=== PATIENT | female | born 1940 | race Caucasian/White ===

== ENCOUNTER → 2021-02-08 | Outpatient (CLI) | payer MEDICARE ==
[~2021-02-08] MED LIST: ATOR20TA37 PO; CALC500T14 PO; CHOL10003 PO; GABA-826 PO; LISI40TA9 PO; MAGN400T36 PO; METF500T17 PO; VITA15LO2 PO
[2021-02-08 12:12] LABS: BASOPHILS % (AUTO) 0 % (0-1); EOSINOPHILS % (AUTO) 3 % (1-7); LYMPHOCYTES % (AUTO) 28 % (22-44); MEAN CORPUSCULAR HEMOGLOBIN 30.1 pg (27.0-34.8); MEAN CORPUSCULAR HGB CONC 33.6 g/dL (32.4-35.8); MEAN PLATELET VOLUME 8.7 fL (7.4-10.4); MONOCYTES % (AUTO) 7 % (2-9); NEUTROPHILS % (AUTO) 62 % (42-75); PLATELET COUNT 249 x10^3/uL (130-400); RED BLOOD COUNT 4.38 x10^6/uL (3.82-5.3); RED CELL DISTRIBUTION WIDTH 13.3 % (9.6-15.2)
[2021-02-08 12:21] LABS: ALANINE AMINOTRANSFERASE 22 U/L (12-78); ALBUMIN 3.6 g/dL (3.4-5.0); ANION GAP 5 mmol/L (5-15); CALCIUM 9.4 mg/dL (8.5-10.1); CHLORIDE 109 mmol/L (98-107); CREATININE 0.64 mg/dL (0.55-1.02)
[2021-02-08 12:23] LABS: ALKALINE PHOSPHATASE 93 U/L (45-117); BILIRUBIN,TOTAL 0.8 mg/dL (0.2-1.0); TOTAL PROTEIN 7.5 g/dL (6.4-8.2)
== END | disposition home or self-care (01) ==
LOC: STAR 10:43
PROVIDERS: ATTEND Orthopaedic Surgery
DX: Z01.818 Encounter for other preprocedural examination (principal); M16.12 Unilateral primary osteoarthritis, left hip; Z20.822 Contact with and (suspected) exposure to COVID-19
CPT/HCPCS: 36415; 80053; 85025; 87081; 93005; U0003; U0005

== ENCOUNTER 2021-02-14 09:47 | Observation (INO) | payer MEDICARE ==
[~2021-02-14] VITALS: Ht 167.6 cm; Wt 95.8 kg
[~2021-02-14 09:47] MED LIST changes: +EPINEPHRINE 1 MG/ML, 1ML ONE; +KETOROLAC 60 MG/2 ML ONE; +ROPIvacaine/PF 0.2%, 20 ML ONE; +ROPivacaine/PF 0.2%, 10 ML ONE; +SODIUM CHLORIDE 0.9% 50 ML ONE; +TRANEXAMIC ACID 100 MG/ML, 10ML ONE
[2021-02-14] MEDS ORDERED: ONDANSETRON 4 MG TABLET PO PRN (10:30)
[2021-02-14] MEDS ORDERED: DEXAMETHASONE 4 MG/ML, 1ML IVPush ONE (10:30)
[2021-02-14] MEDS ORDERED: OXYcodone IR 5MG TABLET PO PRN (10:30)
[2021-02-14] MEDS ORDERED: METOCLOPRAMIDE 5 MG/ML, 2ML IVPush PRN (10:30)
[2021-02-14] MEDS ORDERED: DIPHENHYDRAMINE 50 MG/ML, 1ML IVPush PRN (10:30)
[2021-02-14] MEDS ORDERED: DIPHENHYDRAMINE 50 MG CAPSULE PO PRN (10:30)
[2021-02-14] MEDS ORDERED: POLYETHYLENE GLYCOL 17 GM PACKET PO PRN (10:30)
[2021-02-14] MEDS ORDERED: PSYLLIUM PACKET PO PRN (10:30)
[2021-02-14] MEDS ORDERED: ALUMINUM/MAG/SIMETHICONE 30 ML UDC PO PRN (10:30)
[2021-02-14] MEDS ORDERED: SENNA/DOCUSATE TABLET PO PRN (10:30)
[2021-02-14] MEDS ORDERED: HYDROmorphone 1 MG/ML, 1ML INJ IVPush PRN ×2 (10:30→15:00)
[2021-02-14] MEDS ORDERED: MAGNESIUM HYDROXIDE 8%, 30ML UDC PO PRN (10:30)
[2021-02-14] MEDS ORDERED: ONDANSETRON 2MG/ML, 2ML IVPush PRN (10:30)
[2021-02-14] MEDS ORDERED: PROMETHAZINE 12.5 MG SUPP PR PRN (10:30)
[2021-02-14] MEDS ORDERED: TRANEXAMIC ACID 1,000 MG in SODIUM CHLORIDE 0.9% 100 ML IVPB ONE (10:30)
[2021-02-14] MEDS ORDERED: CHLORHEXIDINE 15 ML UDC ONE (11:19)
[2021-02-14] MEDS ORDERED: LIDOCAINE-MPF 1%, 2ML ONE (11:19)
[2021-02-14] MEDS ORDERED: LACTATED RINGERS 1,000 ML IV SCH (11:30)
[2021-02-14] MEDS ORDERED: CHLORHEXIDINE 15 ML UDC PO ONE ×2 (11:30→12:00)
[2021-02-14] MEDS ORDERED: LIDOCAINE-MPF 1%, 2ML INFIL ONE (11:30)
[2021-02-14 11:52] VITALS: BP 144/84
[2021-02-14] MEDS ORDERED: ACETAMINOPHEN 500 MG TABLET PO ONE (12:00)
[2021-02-14] MEDS ORDERED: GABAPENTIN 300 MG CAPSULE PO ONE (12:00)
[2021-02-14] MEDS ORDERED: GABAPENTIN 300 MG CAPSULE ONE (12:08)
[2021-02-14] MEDS ORDERED: ACETAMINOPHEN 500 MG TABLET ONE (12:08)
[2021-02-14] MEDS ORDERED: ROCURONIUM 10MG/ML,5ML ONE (13:47)
[2021-02-14] MEDS ORDERED: DEXAMETHASONE 4 MG/ML, 1ML ONE (13:47)
[2021-02-14] MEDS ORDERED: PROPOFOL 10 MG/ML, 20ML ONE (13:47)
[2021-02-14] MEDS ORDERED: FENTANYL PF 250 MCG/5ML ONE (13:47)
[2021-02-14] MEDS ORDERED: GLYCOPYRROLATE 0.2MG/1ML, 5ML ONE (13:47)
[2021-02-14] MEDS ORDERED: NEOSTIGMINE 1 MG/ML, 10ML ONE (13:47)
[2021-02-14] MEDS ORDERED: CEFAZOLIN 1,000 MG ONE (13:47)
[2021-02-14] MEDS ORDERED: ONDANSETRON 2MG/ML, 2ML ONE ×2 (13:47→17:37)
[2021-02-14] MEDS ORDERED: MEPERIDINE/PF 25MG/0.5ML IVPush PRN (15:00)
[2021-02-14] MEDS ORDERED: PROMETHAZINE 25 MG/ML, 1ML IVPush PRN (15:00)
[2021-02-14] MEDS ORDERED: hydrALAzine 20 MG/ML, 1ML IV PRN (15:00)
[2021-02-14] MEDS ORDERED: HALOPERIDOL 5 MG/ML IV PRN (15:00)
[2021-02-14] MEDS ORDERED: LABETALOL 5MG/ML, 20ML IV PRN (15:00)
[2021-02-14] MEDS ORDERED: OXYcodone 5 MG/5 ML ORAL.SOL UDC PO PRN (15:00)
[2021-02-14] MEDS ORDERED: morphine SULFATE 10 MG/ML, 1ML IVPush PRN (15:00)
[2021-02-14] MEDS ORDERED: TRANEXAMIC ACID 100 MG/ML, 10ML ONE ×2 (15:30)
[2021-02-14] MEDS ORDERED: VANCOMYCIN 1,000 MG ONE (15:30)
[2021-02-14] MEDS ORDERED: PHENYLEPHRINE 10 MG/ML ONE (15:53)
[2021-02-14] MEDS ORDERED: FENTANYL PF 100 MCG/2ML ONE ×2 (16:47→17:32)
[2021-02-14] MEDS ORDERED: OXYcodone 5 MG/5 ML ORAL.SOL UDC ONE (17:32)
[2021-02-14] MEDS: FENTANYL PF 100 MCG/2ML IV PRN ×2 (17:35→17:50)
[2021-02-14] MEDS: KETOROLAC 30 MG/1 ML IV SCH (19:41)
[2021-02-14] MEDS: DOCUSATE 100 MG CAPSULE PO SCH (19:42)
[2021-02-14] MEDS: ASPIRIN 81 MG TABLET EC PO SCH (19:42)
[2021-02-14] MEDS ORDERED: ATORVASTATIN 20 MG TABLET PO SCH (21:00)
[2021-02-14 21:17] VITALS: BP 121/74
[2021-02-14 23:47] VITALS: BP 114/73
[2021-02-14] MEDS: CEFAZOLIN PMX 1GM/50ML 50 ML IVPB SCH (23:59)
[2021-02-15] MEDS: KETOROLAC 30 MG/1 ML IV SCH ×2 (03:07→11:30)
[2021-02-15] MEDS: POTASSIUM CHLORIDE 20 MEQ in D5%-0.45% NACL 1,000 ML IV SCH ×2 (03:07→13:06)
[2021-02-15 04:43] VITALS: BP 121/73
[2021-02-15] MEDS ORDERED: DEXAMETHASONE 4 MG/ML, 1ML ONE (05:50)
[2021-02-15] MEDS: ASPIRIN 81 MG TABLET EC PO SCH (05:52)
[2021-02-15 07:07] VITALS: BP 122/67
[2021-02-15] MEDS: CEFAZOLIN PMX 1GM/50ML 50 ML IVPB SCH (08:00)
[2021-02-15] MEDS: DOCUSATE 100 MG CAPSULE PO SCH (08:01)
[2021-02-15] MEDS ORDERED: TAMSULOSIN 0.4 MG CAP.ER.24H PO SCH (09:00)
[2021-02-15] MEDS ORDERED: LISINOPRIL 40 MG TABLET PO SCH (09:00)
[2021-02-15] MEDS ORDERED: metFORMIN 500 MG TABLET PO SCH (09:00)
[2021-02-15] MEDS ORDERED: GABAPENTIN 100 MG CAPSULE PO SCH (09:00)
[2021-02-15 12:02] VITALS: BP 125/70
[2021-02-15 13:48] VITALS: BP 94/58
== END 2021-02-15 16:40 | disposition home or self-care (01) ==
LOC: OUT 09:47 → ORIP 10:16 → 4NE 18:34
PROVIDERS: ADMIT Orthopaedic Surgery; ATTEND Orthopaedic Surgery
DX: M16.12 Unilateral primary osteoarthritis, left hip (principal); E11.9 Type 2 diabetes mellitus without complications; E78.00 Pure hypercholesterolemia, unspecified; I10 Essential (primary) hypertension; E78.5 Hyperlipidemia, unspecified; Z79.899 Other long term (current) drug therapy
CPT/HCPCS: 27130; 36415; 72170; 82962; 85014; 85018; 86850; 86900; 96361; 96365; 96366; 96375; 96376; 97161; 97530; C1713; C1776; G0378; J0171; J0690; J1100; J1885; J2370; J2405; J2704; J2710; J2795; J3010; J3480; J3490; J3370